=== PATIENT | male | born 1945 | race Caucasian/White ===

== ENCOUNTER → 2017-11-08 | Outpatient (CLI) | END | disposition home or self-care (01) ==

== ENCOUNTER → 2018-03-03 | Outpatient (CLI) | END | disposition home or self-care (01) ==

== ENCOUNTER 2018-03-13 07:31 | Observation (INO) | END 2018-03-14 13:15 | disposition home health service (06) ==

== ENCOUNTER 2018-05-04 00:24 | Emergency (ER) | END 2018-05-04 03:06 | disposition home or self-care (01) ==

== ENCOUNTER → 2018-06-09 | Outpatient (CLI) | END | disposition home or self-care (01) ==

== ENCOUNTER → 2018-09-08 | Outpatient (CLI) | END | disposition home or self-care (01) ==

== ENCOUNTER 2018-09-13 02:13 | Inpatient (IN) | END 2018-09-15 11:30 | disposition home or self-care (01) | DRG 603 ==

== ENCOUNTER 2019-04-19 15:49 | Emergency (ER) | payer MEDICARE, OTHER ==
[~2019-04-19] VITALS: Ht 177.8 cm; Wt 101.5 kg
[~2019-04-19 15:49] MED LIST: AMAN100T PO; ASPI-817 PO; CELE200C PO; EMPA10TA PO; FINA5TAB4 PO; FLUT16SP17 NASAL; GLIM4TAB PO; LISI-313 PO; LOSA25TA12 PO; MTF1000T PO; OMEG-80 PO; OMEP20CA16 PO; ROPI0.5T2 PO; SIMV80TA18 PO; SITA100T11 PO; SULF1TAB31 PO; TAMS0.4C2 PO
[2019-04-19 15:52] VITALS: BP 159/75; PULSE 87; RESP 18; Ht 177.8 cm; Wt 101.5 kg
[2019-04-19] MEDS ORDERED: BACITRACIN 0.9 GM OINT TOP ONE (16:30)
--- NOTE | 2019-04-19 16:42 | ERD ---
ER Documentation Chief Complaint Chief Complaint LT INDEX FINGER LAC HPI 73-year-old male presents complaint of laceration to fsecond digit of left hand. Patient states that he was sharpening a knife when he accidentally cut himself. States that he is up-to-date on his tetanus. Denies any numbness, tingling, impaired range of motion. Denies any kidney problems. History of diabetes. ROS All systems reviewed and are negative except as per history of present illness. Medications Home Meds Active Scripts Bacitracin* (Bacitracin Oint (UD)*) 1 Applic Oint, 1 APPLIC TOP BID for 10 Days, #1 BOTTLE APPLY TO Prov:AMANDA CRUZ 04/19/19 Cephalexin* (Keflex*) 500 Mg Capsule, 500 MG PO QID for 7 Days, CAP Prov:AMANDA CRUZ 04/19/19 Sulfamethoxazole/Trimethoprim* (Bactrim Ds* Tablet) 1 Each Tablet, 1 TAB PO BID for 10 Days, #20 TAB Prov:NEW KELLER MD- 09/15/18 Reported Medications [place]-3S/Dha/Epa/Fish Oil/D3 (FISH OIL + D3 SOFTGEL) 1 Each Capsule, 1 EACH PO DAILY, CAP 09/13/18 Ropinirole Hcl* (Ropinirole Hcl*) 0.5 Mg Tablet, 0.5 MG PO HS, TAB 09/13/18 Celecoxib* (Celebrex*) 200 Mg Capsule, 200 MG PO BID, CAP 09/13/18 Empagliflozin (Jardiance) 10 Mg Tablet, 10 MG PO DAILY, TAB 09/13/18 Amantadine Hcl* (Symmetrel*) 100 Mg Tablet, 100 MG PO BID, TAB 09/13/18 Losartan Potassium* (Losartan Potassium*) 25 Mg Tablet, 25 MG PO DAILY, TAB 09/13/18 Aspirin* (Aspirin* EC) 81 Mg Tablet.dr, 81 MG PO DAILY, TAB 09/13/18 Lisinopril* (Lisinopril*) 5 Mg Tablet, 5 MG PO DAILY, #30 TAB 09/13/18 Glimepiride* (Glimepiride*) 4 Mg Tablet, 4 MG PO WITH BREAKFAST DINNE, TAB 03/13/18 Fluticasone Propionate* (Fluticasone Propionate* Nasal) 50 Mcg/[place] - 16 Gm [place].susp, 2 SPRAYS NASAL DAILY, #1 BOTTLE TO EACH NOSTRIL 03/12/18 Finasteride* (Finasteride*) 5 Mg Tablet, 5 MG PO DAILY, TAB 03/12/18 Tamsulosin Hcl* (Tamsulosin Hcl*) 0.4 Mg Cap.er.24h, 0.4 MG PO HS, CAP 03/12/18 Sitagliptin* (Januvia*) 100 Mg Tablet, 100 MG PO DAILY, #30 TAB 03/12/18 Simvastatin* (Simvastatin*) 80 Mg Tablet, 80 MG PO QHS, #30 TAB 03/12/18 Metformin* (Glucophage*) 1,000 Mg Tablet, 1000 MG PO BID, #60 TAB 03/12/18 Omeprazole* (Omeprazole*) 20 Mg Capsule.dr, 20 MG PO AC BREAKFAST, #30 CAP 03/12/18 Allergies Allergies: Coded Allergies: No Known Allergies (Verified Allergy, Unknown, 09/13/18) PMhx/Soc History of Surgery: Yes (Crania sx,Tonsilectomy,Right kneeSX,Back fusion,) Anesthesia Reaction: No 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 Neck: Full range of motion. No meningismus. Resp: Clear to auscultation bilaterally Cardio: Regular rate and rhythm, no murmurs Abd: Soft, non tender, non distended. Normal bowel sounds Skin: No petechiae or rashes Back: No midline or flank tenderness Ext: Approximately 1 cm laceration noted to the DIP of second digit of left hand. There is no foreign bodies noted. Full range of motion. Distal sensation is intact. No current bleeding or infection noted. No underlying bony deformity noted. Neur: Awake and alert Psych: Normal Mood and Affect Results 24 hrs Current Medications Medications Dose Sig/Fredy Start Time Status Last (Trade) Ordered Route PRN Stop Time Admin Dose Reason Admin Bacitracin 1 applic ONCE ONCE 04/19/19 DC (Bacitracin TOP 16:30 Oint (Ud)) 04/19/19 16:31 Lidocaine 20 ml ONCE ONCE 04/19/19 DC (Xylocaine SC 17:16 1% (Mdv) 20 04/19/19 17:17 ml) Procedures/MDM DIAGNOSTIC IMAGING REPORT Patient: MICHAEL FORBES : 1945 Age: 73 Sex: M MR #: [id number] DOS: 04/19/19 1620 Ordering MD: AMANDA CRUZ Location: [facility] Room/Bed: PROCEDURE: Left finger x-ray CLINICAL INDICATION: Laceration, evaluate for fracture TECHNIQUE: 3 views of the left second digit were obtained. COMPARISON: None FINDINGS: No acute fracture or dislocation is seen. The joint spaces are well maintained. Diffuse soft tissue swelling about the second digit. IMPRESSION: 1. No acute fracture or dislocation. Diffuse soft tissue swelling about the second digit. RPTAT: AA Physician Lalo Date Time Electronically viewed and signed by Physician Lalo on 04/19/2019 17:08 RP/ CC: AMANDA CRUZ [id number] MDM: Laceration Repair by me: Anesthesia: 1% lidocaine locally Location: Second finger of left hand Tendon/Joint/Nerves: No injury Foreign body: None detected after copious irrigation and exploration Technique: Simple Interrupted Sutures Complexity: No subcutaneous sutures/mucosal repair/edge excision Post Closure Length: 1.5 cm Patient's bleeding was easily controlled in the department and there is no indication of anemia. No evidence of compartment syndrome, neurologic injury, vascular injury, open joint, tendon laceration, or foreign body. Patient is appropriate for outpatient follow up. 48 hour wound check. Scar minimization instructions given. Laceration was. Using the above technique. In addition, x-ray was negative for fracture. There were no retained foreign bodies noted. Patient said he is up-to-date on his tetanus so tetanus was not needed. Given patient's laceration on the finger and questionable cleanliness of the knife that cut him as well as his status as a diabetic, patient was treated with Keflex for 7 days. Patient advised to return in 48 hours for wound check. Low suspicion for retained foreign body, fracture, open fracture, tendon laceration, neurovascular compromise, or any other emergent condition. Patient discharged with strict ER precautions. Patient advised to follow up with PMD. All questions answered at discharge. Departure Diagnosis: Primary Impression: Laceration Condition: Stable Comments Patient evaluated with PA, agree with assessment and plan AMANDA Bobby April 19, 2019 16:42 NATE ORTIZ DO April 20, 2019 12:04
[2019-04-19] MEDS ORDERED: LIDOCAINE 1% (MDV) 20 ML INJ SC ONE (17:16)
[2019-04-19] MEDS ORDERED: CEPH-443 PO (18:22)
[2019-04-19] MEDS ORDERED: BACITUD TOP (18:23)
== END 2019-04-19 18:40 | disposition home or self-care (01) ==
LOC: FTE 15:49
DX: S61.211A Laceration without foreign body of left index finger without damage to nail, initial encounter (principal); I10 Essential (primary) hypertension; W26.0XXA Contact with knife, initial encounter; Y92.9 Unspecified place or not applicable; Z79.82 Long term (current) use of aspirin; Z79.84 Long term (current) use of oral hypoglycemic drugs
CPT/HCPCS: 73140